=== PATIENT | male | born 1970 | race Caucasian/White ===

== ENCOUNTER 2020-06-03 12:20 | Emergency (ER) | payer BC, SELFPAY ==
[2020-06-03 12:21] VITALS: BP 138/89; PULSE 99; RESP 18; TEMP 37.4; O2SAT 96; BMI 23.3
--- NOTE | 2020-06-03 12:40 | XRR_ITS ---
PROCEDURE INFORMATION: Exam: XR Chest, 1 View Exam date and time: 06/03/2020 12:40 PM Age: 49 years old Clinical indication: Chest pain; Type not specified TECHNIQUE: Imaging protocol: XR of the chest Views: 1 view. COMPARISON: ID Chest 1 [place] [id number] 04/04/2016 3:06 PM FINDINGS: Lungs: Unremarkable. No consolidation. Pleural space: Unremarkable. No pleural effusion. No pneumothorax. Heart/Mediastinum: Unremarkable. No cardiomegaly. Bones/joints: No acute findings. XR/XR chest 1V portable [id number] IMPRESSION: No acute findings.
--- NOTE | 2020-06-03 12:40 | ECG_ITS ---
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 Measurements Intervals [place] Rate: 79 P: 76 ID: [id number] QRS: 56 QRSD: 95 T: 63 QT: 334 QTc: 385 Interpretive Statements SINUS RHYTHM POSSIBLE RIGHT VENTRICULAR CONDUCTION DELAY [RSR (QR) IN V1/V2] Compared to ECG 03/31/2016 07:37:51 No significant changes Electronically Signed On 06-04-2020 17:28:40 CDT by Sania Patricia M.D. [id number] f
--- NOTE | 2020-06-03 12:40 | ED_ITS ---
HPI - Chest Pain General: Chief Complaint: Chest Pain Stated Complaint: upper abd pain Time Seen by Provider: 06/03/20 12:21 Source: patient Mode of arrival: ambulatory Limitations: no limitations History of Present Illness: HPI narrative: Patient is a 49-year-old male who presents to ED today with a complaint of left upper abdominal pain/chest pain that is been present over the past 3 days. Patient tells me a few months ago he began having severe intermittent nausea and watery diarrhea. He was evaluated several times for this and was eventually seen at an emergency department in [place] and told it was likely his gallbladder. He met with a general surgeon there and had an elective cholecystectomy approximately a month ago. Patient tells me following his procedure he felt great for about 10 days. He states the intermittent nausea and diarrhea have now returned. He states over the past 3 days he has gotten intermittent sharp pains to the left upper abdome n/lower chest. He states pains only last a few seconds and then subside. He states he can go hours without any discomfort. He states pain does not seem to be worse with coughing, deep inhalation, movement, eating. He does not complain of any shortness of breath, difficulty breathing. Patient does report some acid reflux-like symptoms and states he was treated for this previously however is no longer taking his medications because they just mask the symptoms and do not fix anything . Patient has no known cardiac disease. He was seen once by cardiology who told him he has PVCs. MD complaint: chest pain (abdominal pain) Onset (ago): day(s) Timing of current episode: episodic Onset: during rest Pain location: left chest and other (LUQ) Pain radiation: none Relieving factors: nothing Exacerbating factors: nothing Associated symptoms: Reports abdominal pain, nausea and palpitations (chronic- told he has PVCs); Deny dyspnea, fever(s), syncope or vomiting Review of Systems Const: Denies: fever(s), chills, body aches, change in appetite, change in weight, fatigue or malaise Eyes: Denies: change in vision, blurry vision, photophobia, floaters or seeing flashes ENMT: Denies: throat pain or odynophagia Card: Reports: chest pain and palpitations (chronic-told he has PVCs); Denies: irregular heart rhythm, edema, swelling of feet/ankles, lightheadedness, syncope, pre-syncope, dyspnea on exertion, orthopnea, leg pain with exertion or acrocyanosis Resp: Denies: dyspnea, productive cough, non-productive cough, wheezing, pain on inspiration, hemoptysis or chest congestion GI: Reports: abdominal pain, nausea and diarrhea (watery); Denies: vomiting, hematemesis, coffee ground emesis, dysphagia, heartburn, early satiety, GI cramping, hematochezia, melena or white/light colored stool : Denies: flank pain, difficulty urinating, dysuria, urinary frequency, urinary urgency or urinary hesitancy Musc: Denies: neck pain, back pain or joint pain Skin/Breast: Denies: rash Neuro: Denies: headache(s), numbness in extremities, weakness in extremities or sensory changes Physical Exam Const: COMMON NORMALS: no acute distress, average body habitus, patient oriented x3, no limitations, healthy appearing, alert and well nourished GENERAL APPEARANCE: cooperative and anxious HENMT: COMMON NORMALS: normocephalic and atraumatic HEAD & SCALP: normocephalic and atraumatic Chest: COMMONS NORMALS: normal inspection of the chest and normal palpation of entire chest wall Resp: COMMON NORMALS: normal respiratory effort and clear to auscultation bilaterally AUSCULTATION: clear to auscultation bilaterally Cardio: COMMON NORMALS: regular rate and regular rhythm RATE: regular rate RHYTHM: regular rhythm GI: COMMON NORMALS: Normal to inspection, nondistended, normoactive bowel sounds present, Soft to palpation, non-tender, No hepatosplenomegaly present and no masses PALPATION: Yes Soft to palpation and Yes No hepatosplenomegaly present : COMMON NORMALS: Yes no CVA tenderness BLADDER/KIDNEY EXAM: Yes no CVA tenderness Back/Pelvis: COMMON NORMALS: no CVA tenderness, thoracic and lumbar spine normal to inspection, no thoracic nor lumbar tenderness and thoraco-lumbar ROM normal Neuro: COMMON NORMALS: patient oriented x3 SENSORIUM/ORIENTATION: Yes alert Skin: COMMON NORMALS: no rashes or lesions noted GENERAL SKIN EXAM: no rashes or lesions noted Course Vital Signs: Vital signs: Vital Signs Temperature 99.3 F 06/03/20 12:21 Pulse Rate 81 06/03/20 13:30 Respiratory Rate 16 06/03/20 13:30 Blood Pressure 117/80 06/03/20 13:30 Pulse Oximetry 98 06/03/20 13:30 MDM - Chest Pain MDM Narrative: Medical decision making narrative: Patient has been asymptomatic throughout his stay today. Pain not reproducible with palpation of his abdomen or chest. His symptoms do not sound consistent with cardiac disease. His HEART score is 2. He does tell me now that he rode motorcycles all weekend and wonders if that could have irritated something in his chest. His labs are non-concerning. CXR normal. EKG w/o ischemic changes. Troponin is normal. Vitals are perfect. Recommend he follow up with PCP in 1-2 weeks for continued symptoms. Return to ED precautions given. Lab Data: Labs: Lab Results 06/03/20 06/03/20 06/03/20 Range/Units 12:43 12:43 12:43 WBC 6.1 (4.0-10.0) 10^3/ uL RBC 4.95 (4.1-5.3) 10^6/u L Hgb 14.9 (11.7-16.6) g/dL Hct 45.0 (42.0-52.0) % MCV 90.9 (80-94) fL MCH 30.1 (28.0-34.0) pg MCHC 33.1 (30.0-36.0) g/dL RDW 12.5 (12.1-15.1) % Plt Count 225 (130-400) 10^3/c mm MPV 11.1 H (7.4-10.4) fL Neut % (Auto) 66.6 % Lymph % (Auto) 21.8 % Craven % (Auto) 9.9 % Eos % (Auto) 0.5 % Baso % (Auto) 0.7 % Neut # (Auto) 4.09 (1.8-7.7) 10^3/u L Lymph # (Auto) 1.3 (0.8-4.8) 10^3/u L Craven # (Auto) 0.6 (0.2-0.9) 10^3/u L Eos # (Auto) 0.0 (0.0-0.8) 10^3/u L Baso # (Auto) 0.0 (0.0-0.1) 10^3/u L Nucleated RBC % (a uto) 0 % Nucleated RBCs # 0.0 /100WBC Sodium 139 (136-145) mmol/L Potassium 4.2 (3.5-5.1) mmol/L Chloride 104 (98-107) mmol/L Carbon Dioxide 25 (22-29) mmol/L Anion Gap 14.2 (5-19) BUN 10 (6-20) mg/dL Creatinine 1.1 (0.7-1.2) mg/dL GFR Calculation 71.8 L (90-130) mL/min Glucose 88 (65-115) mg/dL Calculated Osmolal ity 283 L (285-295) mOsm/k g Calcium 9.2 (8.5-10.5) mg/dL Total Bilirubin 0.8 (0.15-1.2) mg/dL AST 21 (0-40) U/L ALT 17 (0-41) U/L Alkaline Phosphata se 72 (40-130) IU/L Troponin T Gen 5 n g/L 6 (0-15) ng/L Total Protein 7.2 (6.6-8.7) g/dL Albumin 4.5 (3.5-5.2) g/dL Globulin 2.7 (1.3-4.6) g/dL Lipase 34 (13-60) U/L H. pylori IgG Anti body (Negative) 06/03/20 Range/Units 12:43 WBC (4.0-10.0) 10^3/ uL RBC (4.1-5.3) 10^6/u L Hgb (11.7-16.6) g/dL Hct (42.0-52.0) % MCV (80-94) fL MCH (28.0-34.0) pg MCHC (30.0-36.0) g/dL RDW (12.1-15.1) % Plt Count (130-400) 10^3/c mm MPV (7.4-10.4) fL Neut % (Auto) % Lymph % (Auto) % Craven % (Auto) % Eos % (Auto) % Baso % (Auto) % Neut # (Auto) (1.8-7.7) 10^3/u L Lymph # (Auto) (0.8-4.8) 10^3/u L Craven # (Auto) (0.2-0.9) 10^3/u L Eos # (Auto) (0.0-0.8) 10^3/u L Baso # (Auto) (0.0-0.1) 10^3/u L Nucleated RBC % (a uto) % Nucleated RBCs # /100WBC Sodium (136-145) mmol/L Potassium (3.5-5.1) mmol/L Chloride (98-107) mmol/L Carbon Dioxide (22-29) mmol/L Anion Gap (5-19) BUN (6-20) mg/dL Creatinine (0.7-1.2) mg/dL GFR Calculation (90-130) mL/min Glucose (65-115) mg/dL Calculated Osmolal ity (285-295) mOsm/k g Calcium (8.5-10.5) mg/dL Total Bilirubin (0.15-1.2) mg/dL AST (0-40) U/L ALT (0-41) U/L Alkaline Phosphata se (40-130) IU/L Troponin T Gen 5 n g/L (0-15) ng/L Total Protein (6.6-8.7) g/dL Albumin (3.5-5.2) g/dL Globulin (1.3-4.6) g/dL Lipase (13-60) U/L H. pylori IgG Anti body Negative (Negative) Imaging Data^: CXR: Radiologist's impression: [address] [address] XRay Report Signed Patient: Juancarlos Song Unit #: [id number] : 1970 Age/Sex: 49 / M ADM Date: 06/03/20 Loc: ER Room/Bed: Attending Dr: Ordering Provider/Ordering MD: Imelda Ritchie Date of Service: 06/03/20 Procedure(s): XR chest 1V portable [id number] Accession Number(s): [id number] Report Number: [id number] PROCEDURE INFORMATION: Exam: XR Chest, 1 View Exam date and time: 06/03/2020 12:40 PM Age: 49 years old Clinical indication: Chest pain; Type not specified TECHNIQUE: Imaging protocol: XR of the chest Views: 1 view. COMPARISON: [place] Chest 1 [place] [id number] 04/04/2016 3:06 PM FINDINGS: Lungs: Unremarkable. No consolidation. Pleural space: Unremarkable. No pleural effusion. No pneumothorax. Heart/Mediastinum: Unremarkable. No cardiomegaly. Bones/joints: No acute findings. XR/XR chest 1V portable [id number] IMPRESSION: No acute findings. Dictated By: Rashid Dolan MD Signed By: Rashid Dolan MD Signed Date/Time: 06/03/201317 DD/ 15 EKG Data^: EKG 1: EKG interpretation date: 06/03/20 EKG interpretation time: 12:46 Interpretation: Sinus rhythm Rate [address] elevation or depression changes noted Discharge Plan Discharge Patient Disposition: Home Clinical Impression: Left-sided chest wall pain Condition: Stable Prescriptions: No Action ondansetron HCl 4 mg tablet 4 mg PO Q8H PRN (Reason: Nausea) RF: 0 escitalopram oxalate 10 mg tablet 5 - 10 mg PO DAILY RF: 0 Men's Multivitamin Gummies 200 mcg Tablet,Chewable 400 mcg PO DAILY RF: 0 Discharge Orders: Discharge Order (Routine); Ordered 06/03/20 Ordered By: Imelda Ritchie Referrals: Frankie Daley MD [Primary Care Provider] - Patient Instructions: Chest Pain - Chest Wall Activity Restrictions/Additional Instructions: As discussed please follow-up with your primary care provider in 1 to 2 weeks for continued symptoms. You may return to the emergency department for worsening pain, difficulty breathing, shortness of breath, fevers, repetitive episodes of vomiting, blood in your vomit or stools, or any other concerns you may have. As discussed if you would like further evaluation for the chronic nausea and watery diarrhea I recommend that your primary care provider refer you to a GI specialist. Coding Level of Care Code ED International Bank Manager for Chg Fwd Exam Comprehensive
[2020-06-03 12:44] VITALS: BP 124/88; PULSE 82; RESP 18; O2SAT 97
[2020-06-03 12:53] LABS: Basophils % 0.7 %; Eosinophils % 0.5 %; Hemoglobin 14.9 g/dL (11.7-16.6); Lymphocytes # 1.3 10^3/uL (0.8-4.8); Lymphocytes % 21.8 %; Mean Corpuscular HGB Conc 33.1 g/dL (30.0-36.0); Mean Corpuscular Hemoglobin 30.1 pg (28.0-34.0); Mean Corpuscular Volume 90.9 fL (80-94); Mean Platelet Volume 11.1 fL (7.4-10.4); Monocytes # 0.6 10^3/uL (0.2-0.9); Monocytes % 9.9 %; Neutrophils # 4.09 10^3/uL (1.8-7.7); Neutrophils % 66.6 %; Nucleated Red Blood Cells % 0 %; Platelet Count 225 10^3/cmm (130-400); Red Blood Count 4.95 10^6/uL (4.1-5.3); Red Cell Distribution Width 12.5 % (12.1-15.1); White Blood Count 6.1 10^3/uL (4.0-10.0)
[2020-06-03 13:27] LABS: Alanine Aminotransferase 17 U/L (0-41); Albumin Level 4.5 g/dL (3.5-5.2); Alkaline Phosphatase 72 IU/L (40-130); Anion Gap 14.2 (5-19); Aspartate Amino Transferase 21 U/L (0-40); Blood Urea Nitrogen 10 mg/dL (6-20); Calcium 9.2 mg/dL (8.5-10.5); Carbon Dioxide 25 mmol/L (22-29); Chloride 104 mmol/L (98-107); Globulin 2.7 g/dL (1.3-4.6); Glomerular Filtration Rate 71.8 mL/min (90-130); Glucose 88 mg/dL (65-115); Lipase 34 U/L (13-60); Osmolality Calculated 283 mOsm/kg (285-295); Potassium 4.2 mmol/L (3.5-5.1); Sodium 139 mmol/L (136-145); Total Bilirubin 0.8 mg/dL (0.15-1.2); Total Protein 7.2 g/dL (6.6-8.7)
[2020-06-03 13:28] LABS: Troponin T (5th) Once 6 ng/L (0-15)
[2020-06-03 13:30] VITALS: BP 117/80; PULSE 81; RESP 16; O2SAT 98
[2020-06-03 13:52] LABS: H. Pylori IgG Antibody Negative (Negative)
[2020-06-03 14:30] VITALS: BP 117/80; PULSE 66; RESP 17; O2SAT 97
== END 2020-06-03 14:39 | disposition home or self-care (01) ==
PROVIDERS: Emergency Provider Physician Assistant; PCP Family Medicine
DX: R07.89 Other chest pain (principal)
CPT/HCPCS: 12345; 36415; 71045; 80053; 83690; 84484; 85025; 86677; 93005; 99283

== ENCOUNTER 2024-06-23 08:54 | Outpatient (CLI) | payer OTHER, SELFPAY ==
--- NOTE | 2024-06-23 09:00 | XR_ITS ---
WS: [id number] XR cervical spine 3V* [id number] REASON FOR EXAM: DEGENERATIVE JOINT DISEASE FINDINGS: Minimal straightening of the normal lordosis of the cervical spine. No vertebral body abnormality. Mild narrowing of the C5-C6 interspace with moderate narrowing of the C6-C7 disc space. Moderate ante rior and posterior osteophytosis C5-C7. Normal facet joint alignment. Mild degenerative arthropathy i n the facet joints at C6-C7 and C7-T1. XR/XR cervical spine 3V* [id number] IMPRESSION: Degenerative spondylosis of the cervical spine as above.
== END 2024-06-23 08:55 | disposition home or self-care (01) ==
LOC: RAD 08:57
PROVIDERS: Visit Provider Chiropractor
DX: M25.9 Joint disorder, unspecified (principal); M47.812 Spondylosis without myelopathy or radiculopathy, cervical region
CPT/HCPCS: 72040

== ENCOUNTER → 2024-08-02 14:08 | Outpatient (BNVA) | payer OTHER, SELFPAY | PROVIDERS: PCP Family Medicine; Visit Provider Internal Medicine Cardiovascular Disease | DX: R00.2 Palpitations (principal); R07.89 Other chest pain | CPT/HCPCS: 99203 ==

== ENCOUNTER → 2024-10-31 13:53 | Outpatient (BNVA) | payer OTHER, SELFPAY | PROVIDERS: PCP Family Medicine; Referring Provider Family Medicine; Visit Provider Surgery | DX: K29.70 Gastritis, unspecified, without bleeding (principal); Z12.11 Encounter for screening for malignant neoplasm of colon; K21.9 Gastro-esophageal reflux disease without esophagitis | CPT/HCPCS: 99204 ==

== ENCOUNTER 2024-11-02 09:11 | Day surgery (SDC) | payer OTHER, SELFPAY ==
[2024-11-02 09:31] VITALS: BP 117/72; PULSE 119; RESP 20; TEMP 36.9; O2SAT 98; BMI 24.1
[2024-11-02] MEDS: sodium chloride 0.9% 500 ML 999 ML IV (09:41)
--- NOTE | 2024-11-02 09:45 | W.PM.OPSUD ---
Surgery/Procedure H&P Update DATE OF PROCEDURE: November 02, 2024 DATE H&P PERFORMED: 10/31/24 H&P UPDATE INFORMATION: I have reviewed H&P completed within last 30 days, I have examined patient prior to procedure, No changes to prior documentation and [place] [facility] [place] indicated PLANNED PROCEDURE: Operation Date: 11/02/24 10:35 Proposed Procedures p EGD 81741, 59206, G0105, Z12.11, K29.70(Not Applicable) - Delfin Pappas MD s Colonoscopy(Not Applicable) - Delfin Pappas MD
--- NOTE | 2024-11-02 09:53 | P.ANESASSM_ITS ---
Pre-Anesthetic Assessment Height/Weight: Height 1.65 m Weight 65.771 kg Temp Pulse Resp BP Pulse Ox O2 Del Method 98.4 F 119 H 20 H 117/72 98 Room Air 11/02/24 09:31 11/02/24 09:31 11/02/24 09:31 11/02/24 09:31 11/02/24 09:31 11/02/24 09:31 Operation Date: 11/02/24 10:35 Proposed Procedures p EGD 57605, 84379, G0105, Z12.11, K29.70(Not Applicable) - Delfin Pappas MD s Colonoscopy(Not Applicable) - Delfin Pappas MD Familial anesthetic complications: couldn't pee for a day and a half after gallbladder Was Beta Yoni taken within 24 hours: N/A Was Clonidine taken within 24 hours: N/A Last intake: Intake Last Liquid Date 11/01/24 Last Liquid Time 22:00 Last Solid Date 10/31/24 Last Solid Time 18:00 Last Intake: 22:00 Social No alcohol and No tobacco Exam alert and oriented x 3 Airway Submandibular: within normal limits Cervical ROM: within normal limits Mallampati: Class IV (limited due to pain after a fall last night) Dentition: full (front tooth is painful but not loose per patient) Comments: Comments: pt passed out last night. lips busted, no loose teeth. thinks his nose is broken. face is sore. Pulmonary None reported CV/HEM Palpitations (checked by it quality assurance analyst in the past, noted to have PVCs, cards cleared at that time.) Chronic Renal Insufficiency (states he has decreased kidney function on last set of lab work.) Hepatic None reported GI Gastroesophageal Reflux Disease (rare) Metabolic None reported Musc/skel Osteoarthritis/DJD (chronic neck pain. good ROM) Neuropsych PTSD, not on meds Anesthetic Plan ASA status: 2 Anesthesia: Anesthesia Evaluation and MAC Medications/Allergies Home Medications Medication Instructions Recorded Confirmed Last Taken Type No Known Home Medications 10/31/24 11/01/24 Unknown History Allergies Allergy/AdvReac Type Severity Reaction Status Date / Time buspirone [From BuSpar] AdvReac Mild Muscle Verified 11/02/24 09:29 twitching/etc Current Medications Generic Name Dose Route Start Last Admin Trade Name Freq PRN Reason Stop Dose Admin Sodium Chloride 500 mls @ 999 mls/hr 11/02/24 09:14 11/02/24 09:41 Sodium Chloride 0.9% IV 999 mls/hr .Q31M PRN Administration HYPOTENSION PFSH Anesthesia Medical History (Updated 10/31/24 @ 15:35 by Delfin Pappas MD) GERD (gastroesophageal reflux disease) Palpitation Anxiety Chest pain Family History Other CAD (coronary artery disease) Cancer Chronic kidney disease (CKD) Diabetes Hyperlipidemia Hypertension Lung disease Stroke Denies family history of Dementia Anesthesia complication Bleeding disorder Family history of premature coronary artery disease Social History Smoking and tobacco/nicotine status: never used tobacco/nicotine Alcohol intake: current Alcohol intake frequency: holidays/special occasions only Alcohol type: wine Substance/Drug Use: never Data Anesthesia Cardiac Studies: Holter Monitor 08/12/20
[2024-11-02 11:40] VITALS: BP 84/65; PULSE 94; RESP 14; TEMP 36.1; O2SAT 100
[2024-11-02 12:00] VITALS: BP 111/79; PULSE 111; RESP 16; O2SAT 95
[2024-11-02 12:13] VITALS: BP 126/87; PULSE 96; RESP 16; O2SAT 96
--- NOTE | 2024-11-02 12:31 | ANE.PACU2 ---
Inpatient post-anesthesia follow up: Airway intact: Yes Vital signs: Temperature 97 F Pulse Rate 96 Respiratory Rate 16 Blood Pressure 126/87 Pulse Oximetry 96 Oxygen Delivery Me thod Room Air Oxygen Flow Rate Fraction of Inspir ed Oxygen Hydration adequate: Yes Nausea and vomiting: No Pain level: 1 Mental status: Baseline
== END 2024-11-02 12:31 | disposition home or self-care (01) ==
PROVIDERS: PCP Family Medicine; Visit Provider Surgery
PROC: 0DJ08ZZ Inspection of Upper Intestinal Tract, Via Natural or Artificial Opening Endoscopic (ICD-10-PCS; principal; 2024-11-02 10:35)
PROC: 0DJD8ZZ Inspection of Lower Intestinal Tract, Via Natural or Artificial Opening Endoscopic (ICD-10-PCS; CPT 45378; 2024-11-02 10:35)
DX: Z12.11 Encounter for screening for malignant neoplasm of colon (principal); D12.5 Benign neoplasm of sigmoid colon; D12.8 Benign neoplasm of rectum; K44.9 Diaphragmatic hernia without obstruction or gangrene; K29.70 Gastritis, unspecified, without bleeding; K21.9 Gastro-esophageal reflux disease without esophagitis
CPT/HCPCS: 43239; 45380; 45385; 88305; J2250; J2704; J7040

== ENCOUNTER → 2024-11-14 14:41 | Outpatient (BNVA) | payer OTHER, SELFPAY | PROVIDERS: PCP Family Medicine; Visit Provider Surgery | DX: K44.9 Diaphragmatic hernia without obstruction or gangrene (principal) | CPT/HCPCS: 99024; 99213 ==

== ENCOUNTER 2025-05-22 13:58 | Outpatient (CLI) | payer OTHER, SELFPAY | END 2025-05-22 13:59 | disposition home or self-care (01) | LOC: SLEEP 13:59 | PROVIDERS: PCP Family Medicine; Referring Provider Family Medicine Geriatric Medicine; Visit Provider Internal Medicine Pulmonary Disease | DX: G47.33 Obstructive sleep apnea (adult) (pediatric) (principal) | CPT/HCPCS: G0399 ==

== ENCOUNTER 2025-06-26 08:40 | Emergency (ER) | payer OTHER, SELFPAY ==
[2025-06-26 08:54] VITALS: BP 154/87; PULSE 82; RESP 20; TEMP 37.1; O2SAT 99
--- NOTE | 2025-06-26 08:54 | XR_ITS ---
WS: [email or web address] XR chest 1V portable [id number] REASON FOR EXAM: Near syncope FINDINGS: The chest is unchanged compared to 06/03/2020. The heart and mediastinum are within normal limits. Calcified granulomatous disease bilaterally. No acute pulmonary parenchymal or pleural abnormalities noted. Bony thorax demonstrates no significant abnormality. XR/XR chest 1V portable [id number] IMPRESSION: Stable chest without acute abnormality.
--- NOTE | 2025-06-26 09:04 | ED_ITS ---
HPI - Weakness 2 General: Chief complaint: Weakness Stated complaint: feels like he is going to pass out, weak, sweats Time Seen by Provider: 06/26/25 08:49 History of Present Illness: 54-year-old male presents emergency room with weakness anxiety he is tachypneic and extremely anxious. He is complaining of numbness tingling in his face and hands some mild chest discomfort and shortness of breath his oxygen saturations are normal. He has an impending sense of doom as if he is about to pass out. Associated symptoms: Denies chest pain, chills, dysuria or fever(s) Related Data Previous Rx's ?Medication ?Instructions ?Recorded pantoprazole 40 mg tablet,delayed 40 mg PO QDAY 30 day s #30 tabs 11/14/24 release Allergies Allergy/AdvReac Type Severity Reaction Status Date / Time buspirone (From BuSpar) AdvReac Mild Muscle Verified 11/14/24 14:42 twitching/etc Review of Systems 2 Const: Denies: fever(s) or chills Card: Denies: chest pain Resp: Denies: dyspnea GI: Denies: abdominal pain : Denies: dysuria, urinary frequency or urinary urgency Musc: Denies: neck pain or back pain Skin/Breast: Denies: rash PFSH ED 2 PFSH: Medical History GERD (gastroesophageal reflux disease) Palpitation Anxiety Chest pain Family History Other CAD (coronary artery disease) Cancer Chronic kidney disease (CKD) Diabetes Hyperlipidemia Hypertension Lung disease Stroke Denies family history of Dementia Anesthesia complication Bleeding disorder Family history of premature coronary artery disease Social History Smoking and tobacco/nicotine status: never used tobacco/nicotine Alcohol intake: current Alcohol intake frequency: holidays/special occasions only Alcohol type: wine Substance/Drug Use: never Physical Exam 2 Const: GENERAL APPEARANCE: cooperative and comfortable O RIENTATION/CONSCIOUSNESS: Yes awake, Yes oriented to person, Yes oriented to place and Yes oriented to time HENMT: COMMON NORMALS: normocephalic, atraumatic and hearing grossly normal bilaterally HEAD & SCALP: normocephalic and atraumatic Resp: COMMON NORMALS: normal respiratory effort, No retractions, No use of accessory muscles and clear to auscultation bilaterally AUSCULTATION: clear to auscultation bilaterally Cardio: COMMON NORMALS: regular rate, regular rhythm and No murmurs present (Cardio) RATE: regular rate RHYTHM: regular rhythm GI: COMMON NORMALS: Soft to palpation and No hepatosplenomegaly present A USCULTATION: Yes normoactive bowel sounds PALPATION: Yes Soft to palpation, No Tenderness to palpation present (GI), No Guarding due to palpation present (GI) and Yes No hepatosplenomegaly present Extremity: COMMON NORMALS: normal to inspection, capillary refill normal, no clubbing, cyanosis or edema, no calf tenderness and no pedal edema Neuro: SENSORIUM/ORIENTATION: Yes oriented to person, Yes oriented to place and Yes oriented to time Skin: COMMON NORMALS: no rashes or lesions noted GENERAL SKIN EXAM: no rashes or lesions noted Course 2 Vital Signs: Vital signs: Vital Signs Temperature 98.7 F 06/26/25 08:54 Pulse Rate 63 06/26/25 10:47 Respiratory Rate 20 H 06/26/25 08:54 Blood Pressure 122/71 06/26/25 10:47 Pulse Oximetry 100 06/26/25 10:47 Oxygen Delivery Me thod Room Air 06/26/25 08:54 MDM - Weakness Medical Decision Making Patient was hyperventilating on arrival other labs and evaluation unremarkable. No acute findings as troponins are negative. Long discussion of the patient about physical manifestations of anxiety symptoms. Strongly recommend he follow-up with psychiatry to reevaluate medication options and treatment options. Return if has further problems. Medical Records I reviewed the patient's medical records. Lab Data I reviewed the patient's lab results. 06/26/25 09:11 06/26/25 09:11 Radiology Impressions Chest X-Ray 06/26/25 08:54 IMPRESSION: Stable chest without acute abnormality. Laboratory Results WBC 5.43 10^3/uL (3.29-11.43) 06/26/25 09:11 RBC 4.88 10^6/uL (3.85-5.65) 06/26/25 09:11 Hgb 15.10 g/dL (11.27-16.99) 06/26/25 09:11 Hct 44.0 % (37-53) 06/26/25 09:11 MCV 90.2 fl (82-101) 06/26/25 09:11 MCH 30.9 pg (27-33) 06/26/25 09:11 MCHC 34.3 g/dL (30-55) 06/26/25 09:11 RDW 12.5 % (12.1-15.1) 06/26/25 09:11 Plt Count 239 10^3/cmm (157-399) 06/26/25 09:11 MPV 11.5 fL (7.4-10.4) H 06/26/25 09:11 Neut % (Auto) 56.7 % 06/26/25 09:11 Lymph % (Auto) 30.4 % 06/26/25 09:11 [place] % (Auto) 10.1 % 06/26/25 09:11 Eos % (Auto) 0.9 % 06/26/25 09:11 Baso % (Auto) 1.5 % 06/26/25 09:11 Neut # (Auto) 3.08 10^3/uL (1.8-7.7) 06/26/25 09:11 Lymph # (Auto) 1.7 10^3/uL (0.8-4.8) 06/26/25 09:11 [place] # (Auto) 0.6 10^3/uL (0.2-0.9) 06/26/25 09:11 Eos # (Auto) 0.1 10^3/uL (0.0-0.8) 06/26/25 09:11 Baso # (Auto) 0.1 10^3/uL (0.0-0.1) 06/26/25 09:11 Nucleated RBC % (auto) 0 % 06/26/25 09:11 Nucleated RBCs # 0.0 /100WBC 06/26/25 09:11 Specimen Type Arterial 06/26/25 09:42 Sample Site Radial, right 06/26/25 09:42 ABG pH 7.61 (7.35-7.45) H* 06/26/25 09:42 ABG pCO2 22.2 mmHg (35-45) L 06/26/25 09:42 ABG pO2 129.0 mmHg (80.0-100.0) H 06/26/25 09:42 ABG PO2/FiO2 Ratio 614 06/26/25 09:42 ABG HCO3 22.2 mmol/L (22-26) 06/26/25 09:42 ABG O2 Saturation > 99.1 06/26/25 09:42 ABG Base Excess 3.4 mmol/L (-2.0-2.0) H 06/26/25 09:42 Brien Test Pos 06/26/25 09:42 A-a O2 Gradient Not Reportable 06/26/25 09:42 Hematocrit 58.9 % (42-52) H 06/26/25 09:42 Hgb O2 Saturation 98.7 % (95-100) 06/26/25 09:42 Carboxyhemoglobin 0.9 %THgb (0.4-20.1) 06/26/25 09:42 Methemoglobin 0.6 % (0.4-1.5) 06/26/25 09:42 Total Hemoglobin 19.2 g/dL (14-18) H 06/26/25 09:42 Sodium 139.0 mmol/L (131-143) 06/26/25 09:42 Potassium 4.2 mmol/L (3.5-5.0) 06/26/25 09:42 Glucose 100.0 mg/dL (70-115) 06/26/25 09:42 Ionized Calcium 1.1 mmol/L (1.1-1.4) 06/26/25 09:42 O2 Delivery Device Room air 06/26/25 09:42 FiO2 21.0 % 06/26/25 09:42 Food Manager ID glc 06/26/25 09:42 Sodium 139 mmol/L (136-145) 06/26/25 09:11 Potassium 4.1 mmol/L (3.5-5.1) 06/26/25 09:11 Chloride 104 mmol/L (98-107) 06/26/25 09:11 Carbon Dioxide 23 mmol/L (22-29) 06/26/25 09:11 Anion Gap 16.1 (5-19) 06/26/25 09:11 BUN 9 mg/dL (6-20) 06/26/25 09:11 Creatinine 1.0 mg/dL (0.7-1.2) 06/26/25 09:11 GFR Calculation 78.5 mL/min (90-130) L 06/26/25 09:11 Glucose 95 mg/dL (65-115) 06/26/25 09:11 Calculated Osmolality 286 mOsm/kg (285-295) 06/26/25 09:11 Calcium 9.1 mg/dL (8.5-10.5) 06/26/25 09:11 Total Bilirubin 1.0 mg/dL (0.15-1.2) 06/26/25 09:11 AST 16 U/L (0-40) 06/26/25 09:11 ALT 12 U/L (0-41) 06/26/25 09:11 Alkaline Phosphatase 60 U/L (40-130) 06/26/25 09:11 Troponin T Baseline < 6 ng/L (0-15) 06/26/25 09:11 Troponin T 120 Minute < 6.0 ng/L (0-15) 06/26/25 10:58 Delta Troponin T 0 ABS# (0-10) 06/26/25 10:58 Total Protein 7.0 g/dL (6.6-8.7) 06/26/25 09:11 Albumin 4.5 g/dL (3.5-5.2) 06/26/25 09:11 Globulin 2.5 g/dL (1.3-4.6) 06/26/25 09:11 Urine Color Yellow (Yellow) 06/26/25 10:33 Urine Appearance Clear (CLEAR) 06/26/25 10:33 Urine pH 8.5 (5-7) A 06/26/25 10:33 Ur Specific [place] 1.018 (1.005-1.030) 06/26/25 10:33 Urine Protein Trace (Negative) A 06/26/25 10:33 Urine Glucose (UA) Negative (Normal) 06/26/25 10:33 Urine Ketones Trace (Negative) 06/26/25 10:33 Urine Blood Negative (Negative) 06/26/25 10:33 Urine Nitrate Negative (Negative) 06/26/25 10:33 Urine Bilirubin Negative (Negative) 06/26/25 10:33 Urine Urobilinogen 1.0 mg/dL (Negative) 06/26/25 10:33 Ur Leukocyte Esterase Negative (Negative) 06/26/25 10:33 Urine RBC 0-2 /hpf (0-2) 06/26/25 10:33 Urine WBC 0-5 /hpf (0-5) 06/26/25 10:33 Ur Squamous Epith Cells 0-5 /hpf (0-5) 06/26/25 10:33 Amorphous Sediment Not Reportable 06/26/25 10:33 Urine Bacteria None seen /hpf (NONE) 06/26/25 10:33 Hyaline Casts 0.40 /lpf 06/26/25 10:33 All radiology interpretation(s) finalized by discharge EKG Data EKG 1: Interpretation: EKG 06/26/2025 912 sinus rhythm incomplete right bundle branch block. Rate of 67. Normal 141 QTc 381[address] No acute [address] changes noted. EKG compared EKG 06/03/2020 EKG 2: Interpretation: EKG 06/26/2025 1038 sinus rhythm rate of 86 [place] interval less than 100 QTc [address] No acute [address] changes noted no significant change compared EKG done earlier same day Discharge Plan Discharge Patient Disposition: Home Clinical Impression: Hyperventilation, Post traumatic stress disorder (PTSD) Condition: Stable Prescriptions: No Action pantoprazole 40 mg tablet,delayed release (DR/EC) 40 mg PO QDAY 30 Days Qty: 30 5RF Discharge Orders: Discharge ED (Routine); Ordered 06/26/25 Ordered By: Kash Jensen Discharge Diet: Usual diet Discharge Activity: Resume usual activity Patient Instructions: Opioid Safety, Pain Management, Patient Portal & Shasha Instructions Activity Restrictions/Additional Instructions: Thank you for choosing [facility] for your healthcare needs today. It is very important that you follow up as instructed or that you return to the Emergency Department should you have concerns or if your condition changes or worsens in any way. Emergency department visits are focused on emergent conditions, in some cases you may require further evaluation on an outpatient basis. You were seen in the emergency room for complaints of feeling like you are going to nearly pass out. Your laboratory tests was show this was related to hyperventilating. This can be a physical manifestation of stress and PTSD. After our discussion I recommend that you follow-up with his psychiatrist through the [facility] for evaluation of treatment options for your symptoms given the history you had related of difficulty with medications. (Please note that included in your discharge packet is information concerning opioid safety and pain management. 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
--- NOTE | 2025-06-26 09:12 | ECG_ITS ---
[facility] Date: 2025-06-26 Pat Name: Juancarlos Song Department: Room: Gender: Male Registered Radiographer: : 1970 Requested By: Kash Johnson Order Number: [id number] Tyra MD: Julia Spears M.D. Measurements Intervals [place] Rate: 67 P: 68 LA: 141 QRS: 15 QRSD: 101 T: 42 QT: 360 QTc: 381 Interpretive Statements SINUS RHYTHM INCOMPLETE RIGHT BUNDLE BRANCH BLOCK [90+ ms QRS DURATION, TERMINAL R IN V1/V2, 40+ ms S IN I/aVL/V4/V5/V6] Compared to ECG 06/03/2020 12:46:08 Incomplete right bundle-branch block now present Electronically Signed On 06-26-2025 17:49:55 CDT by Julia Spears M.D. [email or web address]
[2025-06-26 09:20] LABS: Hematocrit 44.0 % (37-53); Hemoglobin 15.10 g/dL (11.27-16.99); Mean Corpuscular HGB Conc 34.3 g/dL (30-55); Mean Corpuscular Hemoglobin 30.9 pg (27-33); Mean Corpuscular Volume 90.2 fl (82-101); Nucleated Red Blood Cells % 0 %; Platelet Count 239 10^3/cmm (157-399); Red Blood Count 4.88 10^6/uL (3.85-5.65); White Blood Count 5.43 10^3/uL (3.29-11.43)
--- OUTSIDE RECORDS SUMMARY | 2025-06-26 09:32 | XMS_ITS | Clinical Summary ---
Author Organization [facility] Address [address] [place] [address] Dr. Prasadn: [place] [address] Care Team Providers Care Appellate Conferee Name Role Phone JAVIER Mao Sr., Maximo Novak Primary Care Pro vider Allergies No known active allergies Medications No known medications Active Problems No known active problems Encounters Date Type Department Care Team Description 04/25/2025 External Device Data [facility] ABSTRACTION Provider, Abstract 04/25/2025 External Device Data [facility] ABSTRACTION Provider, Abstract 04/25/2025 External Device Data [facility] ABSTRACTION Provider, Abstract 04/03/2025 External Device Data [facility] ABSTRACTION Provider, Abstract 03/28/2025 External Device Data [facility] ABSTRACTION Provider, Abstract 03/27/2025 External Device Data [facility] ABSTRACTION Provider, Abstract from Last 3 Months Immunizations Immunization Administration Dates Next Due (ADACEL/BOOSTRIX)(10 YR UP) TDAP VACCINE, 0.5ML, IM 12/25/2023 Social History Tobacco Use Types Packs/Day Years Used Date Smoking Tobacco: Never Smokeless Tobacco: Never Alcohol Use Standard Drinks/Week Comments Yes 0 (1 standard drink = 0.6 oz pur e alcohol) 2 drinks today Feeling Safe Answer Date Recorded Are you in a relationship wi th someone who hurts you emotionally and/or physically? 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 Gender Identity Not on file Sexual Orientation Not on file Last Filed Vital Signs Vital Sign Reading Time Taken Comments Blood Pressure 114/77 12/25/2023 3:33 PM CDT Pulse 93 12/25/2023 2:46 PM CDT Temperature 37.2 C (98.9 F) 12/25/2023 3:33 PM CDT Respiratory Rate 14 12/25/2023 3:33 PM CDT Oxygen Saturation 97% 12/25/2023 3:33 PM CDT Inhaled Oxygen Concentration - - Weight 67.9 kg (149 lb 9.6 oz) 12/25/2023 2:46 P M CDT Height 171.5 cm (5' 7.5 ) 12/25/2023 2:46 PM CDT Body Mass Index 23.08 12/25/2023 2:46 PM CDT Plan of Treatment Health Maintenance Due Date Last Done Comments HEPATITIS B VACCINES (1 of 3 - 19+ 3-dose series) 11/11 COLORECTAL SCREENING 2017 Colorectal Cancer Screening 2017 FIT-DNA Q 3 years 2017 FIT/FOBT Q 1 year 2017 Flex Sig/CT Colonography Q 5 years 2017 ZOSTER VACCINE (1 of 2) 2022 INFLUENZA VACCINE (#1) 2025 DTAP/TDAP/TD VACCINES (2 - Td or Tdap) 12/24/2033 Insurance [employer] * Guarantor: DEBORAH PENALOZA-[facility] Account Type Relation to Patient Date of Phone Billing Address Corporate Employer DEFAULT ADDRESS [address] [employer] Care Teams Appellate Conferee Relationship Specialty Start Date End Date Mayco Gandara, JAVIER Esquivel [address] [place] [address] PCP - General NURSE PRACTITIONER 01/04/12
--- OUTSIDE RECORDS SUMMARY | 2025-06-26 09:32 | XMS_ITS | Clinical Summary ---
Author Organization 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
[2025-06-26 09:38] LABS: Alanine Aminotransferase 12 U/L (0-41); Albumin Level 4.5 g/dL (3.5-5.2); Alkaline Phosphatase 60 U/L (40-130); Anion Gap 16.1 (5-19); Aspartate Amino Transferase 16 U/L (0-40); Blood Urea Nitrogen 9 mg/dL (6-20); Calcium 9.1 mg/dL (8.5-10.5); Carbon Dioxide 23 mmol/L (22-29); Chloride 104 mmol/L (98-107); Creatinine Clr Calc Pharmacy 77.6981; Globulin 2.5 g/dL (1.3-4.6); Glucose 95 mg/dL (65-115); Osmolality Calculated 286 mOsm/kg (285-295); Potassium 4.1 mmol/L (3.5-5.1); Sodium 139 mmol/L (136-145); Total Protein 7.0 g/dL (6.6-8.7)
[2025-06-26 09:40] LABS: Troponin(5th) Baseline < 6 ng/L (0-15)
[2025-06-26 09:54] LABS: ABG PCO2 22.2 mmHg (35-45); Arterial Blood Gas Hematocrit 58.9 % (42-52); Blood Gas Allen Test Pos; Blood Gas Operator Identificat glc; Blood Gas Sample Site Radial, right; Blood Gas Sample Type Arterial; Carboxyhemoglobin 0.9 %THgb (0.4-20.1); Glucose Level-ABG 100.0 mg/dL (70-115); HCO3 ABG 22.2 mmol/L (22-26); Ionized Calcium Level - ABG 1.1 mmol/L (1.1-1.4); Methemoglobin 0.6 % (0.4-1.5); Oxygen Saturation ABG > 99.1; PO2 ABG 129.0 mmHg (80.0-100.0); PO2 FiO2 Ratio Arterial Blood 614; Potassium Level - ABG 4.2 mmol/L (3.5-5.0); Sodium Level - ABG 139.0 mmol/L (131-143)
[2025-06-26 09:58] LABS: ABG PH Result 7.61 (7.35-7.45)
[2025-06-26 10:47] VITALS: BP 122/71; PULSE 63; O2SAT 100
[2025-06-26 10:52] LABS: Glucose Urine UA Negative (Normal); Nitrate Urine Negative (Negative); Specific Gravity, Urine 1.018 (1.005-1.030)
--- NOTE | 2025-06-26 10:54 | ECG_ITS ---
[facility] Test Date: 2025-06-26 Pat Name: Juancarlos Song Department: Room: Gender: Male Dispensing Operator: : 1970 Requested By: Kash Johnson Order Number: [id number] Tyra MD: Julia Spears M.D. Measurements Intervals [place] Rate: 66 P: 0 MN: 0 QRS: 178 QRSD: 105 T: 140 QT: 381 QTc: 400 Interpretive Statements normal sinus rhythm with short MN interval. Limb lead reversal 1 and aVL INCOMPLETE RIGHT BUNDLE BRANCH BLOCK [90+ ms QRS DURATION, TERMINAL R IN V1/V2, 40+ ms S IN I/aVL/V4/V5/V6] POSSIBLE RIGHT VENTRICULAR HYPERTROPHY [SOME/ALL OF: PROMINENT R IN V1, LATE TRANSITION, RAD, BARRY, SSS] MODERATE ST DEPRESSION [0.05+ mV ST DEPRESSION] Compared to ECG 06/26/2025 09:12:07 ST (T wave) deviation now present Electronically Signed On 06-26-2025 18:06:47 CDT by Julia Spears M.D. [id number]
[2025-06-26 10:57] LABS: Add Urine Microscopic? YES
[2025-06-26 11:29] LABS: Troponin 5 2HR < 6.0 ng/L (0-15); Troponin 5 2HR Delta 0 ABS# (0-10)
== END 2025-06-26 12:16 | disposition home or self-care (01) ==
PROVIDERS: Emergency Provider Family Medicine
DX: R06.4 Hyperventilation (principal); F43.10 Post-traumatic stress disorder, unspecified
CPT/HCPCS: 36415; 36600; 71045; 80051; 80053; 81001; 82330; 82805; 84484; 85025; 93005; 99285; J9999

== ENCOUNTER → 2025-08-08 12:38 | Outpatient (BNVA) | payer OTHER, SELFPAY | PROVIDERS: Visit Provider Internal Medicine Cardiovascular Disease | DX: R07.89 Other chest pain (principal); R00.2 Palpitations; K44.9 Diaphragmatic hernia without obstruction or gangrene | CPT/HCPCS: 99214 ==